=== PATIENT | female | born 1970 | race Caucasian/White ===

== ENCOUNTER 2016-12-03 05:13 | Emergency (ER) | payer BC ==
[2016-12-03] MEDS ORDERED: Ketorolac INJ* 30 MG/ML 1 ML VIAL IV ONE (05:28)
[2016-12-03] MEDS ORDERED: Ketorolac INJ* 30 MG/ML 1 ML VIAL ONE (05:31)
[2016-12-03] MEDS ORDERED: Morphine INJ* 4 MG/ML 1 ML CARPUJECT IV ONE (05:49)
[2016-12-03 05:52] LABS: Hematocrit 39 % (35-47); Mean Corpuscular HGB Conc 34 g/dl (31-36); Mean Corpuscular Hemoglobin 33 pg (27-31); Mean Corpuscular Volume 99 fL (80-97); Mean Platelet Volume 9 um3 (7.4-10.4); Red Blood Count 3.91 10^6/ul (4.0-5.4); Red Cell Distribution Width 13 % (10.5-15); White Blood Count 11.7 10^3/ul (3.5-10.8)
[2016-12-03 06:03] LABS: Albumin 3.9 g/dL (3.2-5.2); BUN/Creatinine Ratio 18.5 (8-20); Calcium 9.4 mg/dL (8.6-10.3); EGFR African American 125.7 (>60); EGFR Non-African American 97.7 (>60); Magnesium 1.7 mg/dL (1.9-2.7); Potassium 3.7 mmol/L (3.5-5.0); Total Bilirubin 0.3 mg/dL (0.2-1.0); Total Protein 6.9 g/dL (6.4-8.9)
[2016-12-03 06:05] LABS: Troponin I 0.01 ng/mL (<0.04)
--- NOTE | 2016-12-03 06:26 | ED ---
Wesley Dejesus Karl, scribed for Bill Hernandez MD on 12/03/16 at 0528 . Upper Extremity Pain - HPI Summary HPI Summary: Pt is a 46 y/o female that presents to the ED c/o sharp 10/10 left shoulder pain that began yesterday morning under her shoulder across her breast and now radiates to the back of her left shoulder/left shoulder blade. Pt reported that the pain worsened this morning at 02:00 and stated "I could lay a certain way and get the pressure off." Pt also reported left arm numbness at this time. - History of Current Complaint Chief Complaint: EDChestPainROMI Stated Complaint: LEFT SHOULDER PAIN Time Seen by Provider: 12/03/16 05:23 Hx Obtained From: Patient Mechanism Of Injury: Unknown Onset/Duration: Started Hours Ago, Atraumatic, Worse Since - 02:00 Timing: Constant, Lasting Hours Severity Initially: Moderate Severity Currently: Moderate Pain Location: Shoulder - left Character: Sharp Aggravating Factor(s): Nothing Alleviating Factor(s): Nothing Associated Signs & Symptoms: Positive: Numbness/Tingling - Allergies/Home Medications Allergies/Adverse Reactions: Allergies Allergy/AdvReac Type Severity Reaction Status Date / Time No Known Allergies Allergy Verified 08/24/16 13:12 PMH/Surg Hx/FS Hx/Imm Hx Endocrine/Hematology History: Denies: Hx Anticoagulant Therapy, Hx Diabetes, Hx Thyroid Disease, Other Endocrine/Hematological Disorders Cardiovascular History: Denies: Hx Congestive Heart Failure, Hx Hypertension, Hx Pacemaker/ICD, Other Cardiovascular Problems/Disorders Respiratory History: Denies: Hx Asthma, Hx Chronic Obstructive Pulmonary Disease (COPD), Other Respiratory Problems/Disorders GI History: Denies: Other GI Disorders History: Denies: Hx Renal Disease, Other Problems/Disorders Musculoskeletal History: Denies: Other Musculoskeletal History Sensory History: Denies: Other Sensory Impairments Opthamlomology History: Denies: Other Sensory Impairments Neurological History: Denies: Hx Dementia, Hx Seizures, Other Neuro Impairments/Disorders Psychiatric History: Denies: Hx Substance Abuse, Other Psychiatric Issues/Disorders - Surgical History Surgery Procedure, Year, and Place: X 2. Tubal Ligation. Cyst removal 'xs 2. Left leg surgery - Immunization History Date of Tetanus Vaccine: PT STATES UNSURE Date of Influenza Vaccine: 2012 Infectious Disease History: No Infectious Disease History: Denies: Hx Hepatitis, Hx Human Immunodeficiency Virus (HIV), History Other Infectious Disease, Traveled Outside the [place] in Last 30 Days - Family History Known Family History: Negative: Hypertension - Social History Alcohol Use: Occasionally Substance Use Type: Reports: None Smoking Status (MU): Heavy Every Day Tobacco Smoker Amount Used/How Often: 1/2 PPD Review of Systems Constitutional: Negative Eyes: Negative ENT: Negative Cardiovascular: Negative Respiratory: Negative Gastrointestinal: Negative Genitourinary: Negative Positive: Myalgia - left shoulder Skin: Negative Positive: Numbness - left shoulder Psychological: Normal All Other Systems Reviewed And Are Negative: Yes Physical Exam Triage Information Reviewed: Yes Vital Signs On Initial Exam: Initial Vitals Temp Pulse Resp BP Pulse Ox 97.3 F 68 17 143/74 100 12/03/16 05:21 12/03/16 05:21 12/03/16 05:21 12/03/16 05:21 12/03/16 05:21 Vital Signs Reviewed: Yes Appearance: Positive: Well-Appearing, Pain Distress - mildly uncomfoertable Skin: Positive: Warm Eyes: Positive: SUNNY ENT: Positive: Hearing grossly normal Neck: Positive: Supple Respiratory/Lung Sounds: Positive: Breath Sounds Present - mild splinting Cardiovascular: Positive: Normal Abdomen Description: Positive: Nontender, No Organomegaly, Soft Bowel Sounds: Positive: Present Musculoskeletal: Positive: Strength/ROM Intact Neurological: Positive: Sensory/Motor Intact, Alert, Oriented to Person Place, Time Psychiatric: Positive: Affect/Mood Appropriate Diagnostics - Vital Signs Vital Signs Temp Pulse Resp BP Pulse Ox 12/03/16 05:21 97.3 F 68 17 143/74 100 - Laboratory Lab Results: Lab Results 12/03/16 12/03/16 12/03/16 Range/Units 05:25 05:25 05:25 WBC 11.7 H (3.5-10.8) 10^3/ul RBC 3.91 L (4.0-5.4) 10^6/ul Hgb 13.0 (12.0-16.0) g/dl Hct 39 (35-47) % MCV 99 H (80-97) fL MCH 33 H (27-31) pg MCHC 34 (31-36) g/dl RDW 13 (10.5-15) % Plt Count 205 (150-450) 10^3/ul MPV 9 (7.4-10.4) um3 Neut % (Auto) 73.6 (38-83) % Lymph % (Auto) 19.7 L (25-47) % [place] % (Auto) 5.3 (1-9) % Eos % (Auto) 0.9 (0-6) % Baso % (Auto) 0.5 (0-2) % Absolute Neuts (auto) 8.6 H (1.5-7.7) 10^3/ul Absolute Lymphs (auto) 2.3 (1.0-4.8) 10^3/ul Absolute Monos (auto) 0.6 (0-0.8) 10^3/ul Absolute Eos (auto) 0.1 (0-0.6) 10^3/ul Absolute Basos (auto) 0.1 (0-0.2) 10^3/ul Absolute Nucleated RBC 0 10^3/ul Nucleated RBC % 0 Sodium 137 (133-145) mmol/L Potassium 3.7 (3.5-5.0) mmol/L Chloride 107 (101-111) mmol/L Carbon Dioxide 26 (22-32) mmol/L Anion Gap 4 (2-11) mmol/L BUN 12 (6-24) mg/dL Creatinine 0.65 (0.51-0.95) mg/dL Est GFR ( Amer) 125.7 (>60) Est GFR (Non-Af Amer) 97.7 (>60) BUN/Creatinine Ratio 18.5 (8-20) Glucose 109 H (70-100) mg/dL Lactic Acid 1.0 (0.5-2.0) mmol/L Calcium 9.4 (8.6-10.3) mg/dL Magnesium 1.7 L (1.9-2.7) mg/dL Total Bilirubin 0.30 (0.2-1.0) mg/dL AST 15 (13-39) U/L ALT 14 (7-52) U/L Alkaline Phosphatase 56 (34-104) U/L Troponin I 0.01 (<0.04) ng/mL Total Protein 6.9 (6.4-8.9) g/dL Albumin 3.9 (3.2-5.2) g/dL Globulin 3.0 (2-4) g/dL Albumin/Globulin Ratio 1.3 (1-3) Digoxin 0.2 L (0.8-2.0) ng/ml Result Diagrams: 12/03/16 05:25 12/03/16 05:25 Lab Statement: Any lab studies that have been ordered have been reviewed, and results considered in the medical decision making process. - EKG 05:21 EKG Interpretation: NSR at 73 bpm, EKG within normal limits Re-Evaluation - Re-Evaluation First Eval Re-Evaluation Time: 06:51 - pt still c/o pain, mildly improved Change: Improved Course/Dx - Diagnoses Provider Diagnoses: Pleurisy - Physician Notifications Discussed Care Of Patient With: case endorsed to dr olivarez pending reevaluation and disposition Discharge - Discharge Plan Condition: Fair Disposition: HOME Prescriptions: HYDROcodone/ACETAMIN 5-325 MG* [[place] 5-325 TAB*] 1 tab PO Q6H PRN #20 tab MDD 4 PRN Reason: Pain Patient Education Materials: Chest Pain (ED) Referrals: Chase Bryson MD [Medical Doctor] - Daquan Maria MD [Primary Care Provider] - Additional Instructions: Follow up with Dr. Bryson. The documentation as recorded by the Wesley krishna Karl accurately reflects the service I personally performed and the decisions made by , Bill Hernandez MD.
[2016-12-03] MEDS ORDERED: HYDROmorphone INJ* 1 MG/ML CARPUJECT SYRINGE IV SLOW PU ONE (06:28)
--- NOTE | 2016-12-03 07:54 | RAD ---
INDICATION: Left shoulder pain and numbness extending down the left upper extremity COMPARISON: Chest x-ray April 18, 2009 TECHNIQUE: PA and lateral views of the chest were obtained. FINDINGS: The heart and mediastinum are normal in size and contour. The lungs are grossly clear. There is no evidence of large pleural effusion. Visualized bones are normal for the patient's age. There is no radiographic evidence of free air beneath the diaphragm IMPRESSION: No radiographic evidence of acute cardiopulmonary disease.
[2016-12-03 09:45] VITALS: BP 109/53
--- NOTE | 2016-12-03 10:09 | CONSULT ---
Consult Consult: Soni Chávez was signed out to me pending a second troponin which returned negative. She reported to me that she felt a lot better after the pain meds and sleeping in the ED although she could still feel the pain a little. Her pain sounded radicular to me and her W/U was negative so I gave her a script for [place] and recommended that she F/U with Dr. Maria. She was D/C'd in stable condition.
== END 2016-12-03 10:11 | disposition home or self-care (01) ==
LOC: ED 05:13
DX: R09.1 Pleurisy (principal); F17.210 Nicotine dependence, cigarettes, uncomplicated
CPT/HCPCS: 36415; 71020; 80053; 83605; 83735; 84484; 85025; 85379; 93005; 99284; J1170; J1885; J2270